=== PATIENT | male | born 2000 | race Two or more races ===

== ENCOUNTER 2025-08-04 12:16 | Inpatient (IN) | payer MEDICAID, SELFPAY ==
--- NOTE | 2025-08-04 12:19 | XR_ITS ---
Examination: CT brain head without contrast. 2-D sagittal coronal reconstructions Date and time of exam: August 04, 2025, 1433 hours, comparison May 13, 2024 INDICATIONS: Multiple seizures today followed by altered mental status COMPARISON: May 13, 2024 CTDI: vol (mGy): 58.5 DLP: (mGycm): 1194 Technique: Multiple CT axial sections of the brain have been obtained, 5 mm slice thickness. Contrast has not been administered. 2-D sagittal, coronal reconstructions have been obtained Low dose protocols were performed. One or more of the following dose reduction techniques were used; automated exposure control, adjustment of the mA and/or KV according to patient size, use of iterative reconstruction technique. Findings: No significant ventricular enlargement. Stable multiple cerebral calcifications and left cerebellar calcification Intra-axial or extra-axial hemorrhage density is not seen. No mass effect or midline shift Basal cisterns are not remarkable. Fourth ventricle is midline. Cranial vault intact. Impression: No interval acute hemorrhage, mass effect or midline shift Again noted multiple cerebral calcifications, differential would include cysticercosis, tuberous sclerosis Consider elective brain MRI follow-up pre and postcontrast
--- NOTE | 2025-08-04 12:19 | EKG_ITS ---
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
[2025-08-04 12:20] VITALS: BP 112/55; PULSE 104; PULSE 115; PULSE 117; RESP 12; RESP 15; TEMP 37.9; O2SAT 87; O2SAT 93
--- NOTE | 2025-08-04 12:23 | EDNOTE_ITS ---
ED General RME/HPI General Chief complaint: Seizure Stated complaint: SEIZURE Time Seen by Provider: 08/04/25 12:18 Arrival date/time: 08/04/25 12:16 CC: Seizures HPI patient presents to the ER via EMS who report family witnessing 6 seizures 3 along and 3 short. The patient is obtunded but maintaining his own airway. EMS report tachycardia but otherwise stable vital signs. 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 EMS reports the grandmother stating the patient has been sick , prior to the seizures. Patient is reported to be nonverbal. Extremities appear deconditioned as I assume the patient is nonambulatory. Discussed with the mother at bedside who does not have custody of the patient states the patient has been raised by the grandmother, and the grandfather approximately 1 week ago. The grandmother did not was reluctant to take away his lopez toys and the patient stayed up all night until 5 in AM playing video games, in spite of the grandmother knowing that this would elicit seizures. Related Data Home Medications ?Medication ?Instructions ?Recorded ?Confirmed levetiracetam 1,000 mg tablet 2,000 mg PO BID 05/14/24 05/14/24 zonisamide 100 mg capsule 400 mg PO HS 05/14/24 Allergies Allergy/AdvReac Type Severity Reaction Status Date / Time No Known Allergies Allergy Verified 08/04/25 12:41 Review of Systems Review of Systems ROS Unobtainable: unobtainable due to mental status Past Medical History Past Medical History NEUROLOGIC: Positive Neurological Disorders (tuberous sclerosis), Brain Tumor and Seizures CARDIAC: Negative Cardiac Disorders, Hypercholesterolemia, Congestive Heart Failure or Hypertension RESPIRATORY: Negative Chronic Obstructive Pulmonary Disease (COPD) or Asthma GENITOURINARY: Negative Renal Disease MUSCULOSKELETAL: Negative Musculoskeletal Disorders ENT: Positive Deafness ENDOCRINE: Negative Diabetes Mellitus Type 1 or Diabetes Mellitus Type 2 HEMATOLOGIC: Negative Blood Disorders or Sickle Cell Disease OTHER HISTORY: Negative MRSA Family History FAMILY HISTORY: Positive Family Cardiac Disorders (HTN- paternal gma and gpa) Social History SMOKING STATUS: Never smoker SUBSTANCE USE: does not use ED Exam Narrative Physical exam: [General: Obese Head normocephalic HEENT: Eyes pupils are PERRLA no disconjugate gaze, mouth dry membranes nose no rhinorrhea. Neck is supple Chest equal chest rise nontender to palpation Respiratory: Tachypneic clear to auscultation no wheezes crackles or rubs CV: Rate rhythm is regular, tachycardic, no murmurs rubs or clicks Abdomen is distended secondary to body habitus soft no masses positive bowel sounds all 4 quadrants Back: Skin: Intact no petechiae rash induration ulceration or crepitus Extremities: Flaccid with passive range of motion. Fingers appeared to be contracted, feet appeared to be distended as a chronic foot drop. Neuro: Moaning to sternal rub. Course Course Course Narrative: Patient's case clinical presentation laboratory results and imaging discussed with the resident Dr. Maurice for Dr. Samantha Null agrees to accept the patient for admission. Quality Measures none Orders Category Date Time Status Bedside COVID-19 Antigen Test NOW Care 08/04/25 12:19 Active Double Cut Off Saw Operator STAT Care 08/04/25 12:19 Active Continuous Pulse Oximetry STAT Care 08/04/25 12:19 Completed EKG (ED ONLY) *Do not use* NOW Care 08/04/25 12:19 Completed In and Out Catheter X1PRN Care 08/04/25 12:19 Completed Insert IV NOW Care 08/04/25 12:19 Active NPO STAT Care 08/04/25 12:19 Active Strict Intake and Output Routine Care 08/04/25 12:[address] head/brain wo con Stat Exams 08/04/25 12:19 Completed EKG (ED Only) Stat Exams 08/04/25 12:19 Draft XR chest 1V Stat Exams 08/04/25 15:16 Ordered ABG [Arterial Blood Gas] Stat Lab 08/04/25 14:01 Ordered B-Type Natriuretic Peptide Stat Lab 08/04/25 12:20 Completed Beta Hydroxybutyrate Stat Lab 08/04/25 14:46 Completed Blood Culture (Lab) Stat Lab 08/04/25 12:20 Received CBC Stat Lab 08/04/25 12:20 Completed CBC Stat Lab 08/04/25 15:38 Ordered CMP [Comprehensive Metabolic Panel] Stat Lab 08/04/25 15:38 Ordered Comprehensive Metabolic Panel Stat Lab 08/04/25 12:20 Completed Creatine Kinase Stat Lab 08/04/25 14:46 Completed Influenza A & B Rapid Panel Stat Lab 08/04/25 13:04 Completed LDH (Lactate Dehydrogenase) Stat Lab 08/04/25 12:20 Completed Lactate (Lactic Acid) Stat Lab 08/04/25 13:10 Results Lactic Acid [Lactate (Lactic Acid)] Stat Lab 08/04/25 15:38 Ordered Lipase Stat Lab 08/04/25 12:20 Completed Magnesium Stat Lab 08/04/25 12:20 Completed Partial Thromboplastin Time Stat Lab 08/04/25 12:20 Completed Path Review Blood Smear Stat Lab 08/04/25 12:20 Completed Phosphorous Stat Lab 08/04/25 12:20 Completed Procalcitonin Stat Lab 08/04/25 12:20 Completed Prothrombin Time with INR Stat Lab 08/04/25 12:20 Completed Troponin I Stat Lab 08/04/25 12:20 Completed Urinalysis, C/S if Indicated Stat Lab 08/04/25 12:30 Completed Urine Culture Stat Lab 08/04/25 12:30 Received VBG [Venous Blood Gas] Stat Lab 08/04/25 15:38 Ordered Acetaminophen Ivpb [Ofirmev Inj] Med 08/04/25 12:30 Discontinued 1,000 mg in 100 ml IV NOW Ringers Lactated 1000 ml [Lactated Ringers] 1,000 ml Med 08/04/25 12:20 Discontinued IV 999 mls/hr Ringers Lactated 1000 ml [Lactated Ringers] 1,000 ml Med 08/04/25 13:11 Discontinued IV 999 mls/hr Ringers Lactated 1000 ml [Lactated Ringers] 1,000 ml Med 08/04/25 13:51 Discontinued IV 999 mls/hr Ringers Lactated 500 ml [Lactated Ringers] 500 ml Med 08/04/25 13:51 Discontinued IV 999 mls/hr Sodium Chloride 0.9% 1000 ml [Ns] 1,000 ml Med 08/04/25 13:49 Active IV 250 mls/hr cefTRIAXone/D5w 1gm IV premix [Rocephin/D5w 1gm IV Med 08/04/25 13:55 D iscontinued premix] 1 gm in 50 ml IV X1 levETIRAcetam INJ [Keppra Inj] Med 08/04/25 12:19 Discontinued 1,500 mg IVP X1 ONE levETIRAcetam INJ [Keppra Inj] Med 08/04/25 12:23 Discontinued 2,000 mg IVP X1 ONE Oxygen Delivery NOW RT 08/04/25 12:19 Active Vital Signs Vital signs: Vital Signs Temperature 100.2 F 08/04/25 12:20 Pulse Rate 117 H 08/04/25 12:20 Respiratory Rate 15 08/04/25 12:20 Blood Pressure 112/55 L 08/04/25 12:20 Pulse Oximetry (%) 93 L 08/04/25 12:20 Oxygen Delivery Method Oxy Mask 08/04/25 12:20 Oxygen Flow Rate 15 08/04/25 12:20 Discharge Plan Plan Patient Disposition: Other Care w/in Hosp ([facility]) Patient condition on transfer: Stable Prescriptions/Referrals Prescriptions/Med Rec: No Action zonisamide 100 mg capsule 400 mg PO HS Patient Comments: TAKE 4 CAPSULES BY MOUTH EVERY DAY IN THE EVENING levetiracetam 1,000 mg tablet 2,000 mg PO BID Patient Comments: TAKE 2 TABLETS BY MOUTH IN THE MORNING AND TAKE 2 TABLETS AT BEDTIME Referrals: Leatha Blackmon HOUSEKEEPER/LAUNDRY ASSISTANT [Primary Care Provider] - In 1 week Problem List Clinical Impression: Leukocytosis, Fever, Sepsis, Seizure, Dehydration Patient/Caregiver Discharge Instructions Print Language: Italian Stand Alone Forms: [place] Info., Patient Portal Info Letter PA/JEWELRY DEPARTMENT SUPERVISOR Supervising Physician PA/JEWELRY DEPARTMENT SUPERVISOR Supervising Physician: Bruno Faustin ENP [facility] Clinical Information Provided by: EMS and family Medical Records reviewed [facility] Meds/Rx considered, not ordered None Labs/Rad/Tests considered, not ordered None Chronic Illness/Social Conditions Explain: Seizure disorder EKG Interpretation EKG #1: EKG Interpretation: EKG performed at 1230 shows a ventricular rate of 131 AK interval 136 QRS of 98 QTc of 401 is sinus tachycardia. When compared to old EKG of May 14, 2024 there is T wave inversions in aVR and V2, otherwise no other acute changes. Labs Labs: interpreted by ma Lab(s) Interpretation(s): CBC shows a leukocytosis of 37.2 no anemia no thrombocytopenia Coags show PTT of 38.8 INR 1.0 PT of 10.9. CMP shows a glucose of 236 creatinine of 1.7 sodium 145 potassium of 4.2 chloride of 104, CO2 is less than 10 gap of 31. Lactic acid of 19.0. T. bili of 0.2 AST 38 ALT of 71 alk phos of 167 LDH of 3 98 Troponin and BNP are unremarkable. Lipase is 37. Medication Administration(s) Medication Administration History Sodium Chloride (Ns) 1,000 mls @ 250 mls/hr IV .Q4H RANJEET Stop: 09/03/25 13:48 Discontinued Medications Lactated Ringer's (Lactated Ringers) 1,000 mls @ 999 mls/hr IV .Q1H1M ONE Stop: 08/04/25 13:20 Last Infusion: 08/04/25 13:38 Dose: Infused Documented By: Admin: 08/04/25 12:37 Dose: 999 mls/hr Documented By: VL Acetaminophen (Ofirmev Inj) 1,000 mg in 100 mls @ 250 mls/hr IV NOW ONE Stop: 08/04/25 12:53 Last Infusion: 08/04/25 13:00 Dose: Infused Documented By: Admin: 08/04/25 12:36 Dose: 250 mls/hr Documented By: VL Lactated Ringer's (Lactated Ringers) 1,000 mls @ 999 mls/hr IV .Q1H1M ONE Stop: 08/04/25 14:11 Last Admin: 08/04/25 13:29 Dose: 999 mls/hr Documented By: ED Lactated Ringer's (Lactated Ringers) 1,000 mls @ 999 mls/hr IV .Q1H1M ONE Stop: 08/04/25 14:51 Lactated Ringer's (Lactated Ringers) 500 mls @ 999 mls/hr IV .Q31M ONE Stop: 08/04/25 14:21 Ceftriaxone Sodium/Dextrose (Rocephin/D5w 1gm Iv Premix) 1 gm in 50 mls @ 100 mls/hr IV X1 ONE Stop: 08/04/25 14:24 Levetiracetam (Levetiracetam Inj 100 Mg/Ml Vial 5ml) 1,500 mg IVP X1 ONE Stop: 08/04/25 12:20 Last Admin: 08/04/25 12:48 Dose: Not Given Documented By: VL Non-Admin Reason: Cancelled by Provider Levetiracetam (Levetiracetam Inj 100 Mg/Ml Vial 5ml) 2,000 mg IVP X1 ONE Stop: 08/04/25 12:24 Last Admin: 08/04/25 12:37 Dose: 2,000 mg Documented By: VL
[2025-08-04 12:36] VITALS: BMI 33.9
[2025-08-04] MEDS: ACETAMINOPHEN IVPB 1,000 MG/100 ML VIAL 250 MG IV (12:36)
[2025-08-04] MEDS: RINGERS LACTATED 1000 ML 1,000 ML 999 ML IV ×3 (12:37→16:27)
[2025-08-04] MEDS: levETIRAcetam INJ 100 MG/ML VIAL 5ML 2000 MG IVP (12:37)
--- NOTE | 2025-08-04 12:42 | PC.NURSE ---
Mother at bedside now, grandmother at bedside earlier. Mother states Grandmother has custody of pt.
[2025-08-04 12:44] LABS: Collection Type, Urine Clean Catch
[2025-08-04 12:58] LABS: Bacteria,Urine 2+; Bilirubin,Urine Negative (Negative); Blood,Urine Negative (Negative); Clarity,Urine Clear (Clear/Hazy); Color,Urine Yellow (Lt Yel-Yel); Glucose, Urine Negative (Negative); Ketones,Urine Negative (Negative); Leukocyte Esterase,Urine Negative (Negative); Nitrite,Urine Negative (Negative); PH,Urine 6.0 (5.0-7.0); Protein,Urine 1+ (Neg - Trace); RBC,Urine 12 /hpf (0-3); Specific Gravity,Urine 1.027 (1.001-1.035); Squamous Epithelial Cell,Urine 1 /hpf (0-5); Urobilinogen,Urine Negative mg/dL (0.0-1.0); WBC,Urine 3 /hpf (0-5)
[2025-08-04 13:19] LABS: Culture Indicated,Urine Yes; Sperm,Urine Present
[2025-08-04 13:40] LABS: Basophils # (Auto) 0.3 Thou/mm3 (0.0-0.2); Basophils % (Auto) 1 % (0-2.5); Eosinophils # (Auto) 0.5 Thou/mm3 (0.0-0.5); Eosinophils % (Auto) 1 % (0-10); Hematocrit 48.9 % (41.0-53.0); Hemoglobin 15.1 g/dL (13.5-16.0); Immature Granulocytes Auto 1.83 Thou/mm3 (0.00-0.00); Lymphocytes # (Auto) 18.6 Thou/mm3 (1.0-4.8); Lymphocytes % (Auto) 50 % (10-50); Mean Corpuscular HGB Conc 30.9 g/dl (31.0-37.0); Mean Corpuscular Hemoglobin 32.1 pg (25.0-35.0); Mean Corpuscular Volume 104 fL (80-100); Monocytes # (Auto) 2.3 Thou/mm3 (0.0-0.8); Monocytes % (Auto) 6 % (0-12); Neutrophils # (Auto) 13.7 Thou/mm3 (1.8-7.7); Neutrophils % (Auto) 37 % (37-80); Nucleated Red Blood Cell # 0.02 Thou/mm3 (0.00-0.00); Nucleated Red Blood Cell % 0 /100 WBC (0); Platelet Count 367 Thou/mm3 (140-440); RDW Standard Deviation 45.6 fL (35.1-43.9); Red Blood Count 4.70 Miln/mm3 (4.50-5.90)
[2025-08-04 13:41] LABS: B-Type Natriuretic Peptide < 20 pg/mL (0-100)
[2025-08-04 13:46] LABS: Alanine Aminotransferase 71 U/L (10-49); Albumin, Serum 5.4 gm/dL (3.5-5.0); Albumin/Globulin Ratio 1.7 (1.2-2.2); Alkaline Phosphatase 167 U/L (46-116); Aspartate Amino Transferase 38 U/L (0-34); BUN/Creatinine Ratio 6 Ratio (12-20); Bilirubin,Total 0.2 mg/dL (0.3-1.2); Blood Urea Nitrogen 11 mg/dL (9-23); Calcium 10.3 mg/dL (8.3-10.6); Calcium (Corrected) 10.3 mg/dL (8.5-10.1); Chloride 104 mMol/L (98-107); Creatinine (Component) 1.7 mg/dL (0.6-1.3); Estimated Creatinine Clearance 87.9 mL/min (>60); Globulin 3.1 gm/dL (2.3-3.5); Glucose 236 mg/dL (74-106); LDH (Lactate Dehydrogenase) 398 U/L (120-246); Lipase 37 U/L (12-53); Magnesium 2.7 mg/dL (1.6-2.6); Osmolality,Calculated 296 (275-295); Phosphorous 7.9 mg/dL (2.4-5.1); Potassium 4.2 mMol/L (3.4-5.1); Sodium 145 mMol/L (136-145); Total Protein 8.5 gm/dL (5.7-8.2); Troponin I < 0.020 ng/mL (0.0-0.045); White Blood Count 37.2 Thou/mm3 (3.8-10.6); eGFR 57 See Note
[2025-08-04 13:48] LABS: Lactate (Lactic Acid) 19.0 mMol/L (0.4-2.0)
[2025-08-04 13:49] LABS: INR 1.0 (0.9-1.3); Partial Thromboplastin Time 38.8 Seconds (22.0-36.0); Prothrombin Time 10.9 Seconds (9.0-12.2)
[2025-08-04 13:56] LABS: Procalcitonin 0.07 ng/ml (0.0-0.49)
[2025-08-04 13:57] LABS: Anion Gap 31 (7-16)
[2025-08-04 13:58] LABS: Carbon Dioxide < 10.0 mMol/L (20.0-31.0)
[2025-08-04 14:02] LABS: Path Review Blood Smear Sent to Pathologist
[2025-08-04 14:20] LABS: Influenza A Ag Negative; Influenza B Ag Negative
[2025-08-04 15:06] LABS: Beta Hydroxybutyrate 0.1 mmol/L (<0.6)
--- NOTE | 2025-08-04 15:16 | XR_ITS ---
EXAMINATION: AP chest single view TECHNIQUE: Portable sitting AP chest single view Date and time: August 04, 2025, 1532 hours, comparison May 15, 2024 INDICATIONS: Cough and chest pain beginning today FINDINGS: Reduced inspiratory effort Normal heart size No pneumonia. Osseous structures intact IMPRESSION: Poor inspiratory effort chest x-ray
[2025-08-04 15:25] LABS: Creatine Kinase 156 U/L (34-171)
--- NOTE | 2025-08-04 16:08 | ESHP_ITS ---
<Statement entered by Mackenzie Shannon MD - 08/13/25 07:14> I reviewed above note and agree with findings and plans. I have also personally examined the patient with medicine team and went over assessment and plan with medical team including quality intern and resident physician. 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 Seizures were witnessed by grandmother who was at bedside.. Per grandmother last 24-hour the patient was playing a lot of video games and was sleep deprived. Grandmother is the primary engraver pantograph and has a full custody over the patient. He is following up outpatient with and was on Keppra, lacosamide, zonisamide. Patient was compliant with the home regimen. However recent sleep deprivation probably triggered seizures. On presentation patient was tachycardic, saturating 93% on 15 L of OxyMask. Labs revealed leukocytosis with WBC of 37.2, CMP was remarkable for acidosis bicarb of less than 10, lactic acid was 19, Cr1.7, glucose 236. Phosphorus 7.9, magnesium is 2.7, CPK was within normal limits. Patient in ED was given 3500 of Keppra, [address] head showed again multiple cerebral calcifications differentials tuberosclerosis. Neurology was contacted in ED and recommended admission for 24-hour monitoring, and continue home medication I discussed with and supervised the quality intern physician who took care of this patient. I personally saw and examined the patient and discussed the assessment and plan with the entire medicine team, including my attending , I agree with the assessment and plan as documented below Sweta Holden M.D. PGY-3 Disclaimer: Despite multiple revisions, due to the dictation software being used, the document bellow may not be free of grammatical errors including phonetic/typographic errors. However, this does not deter from our commitment to providing health care in the patient's best interest in mind. Documentation for date of: 08/04/25 HPI History of Present Illness History of present illness: 25-year-old male with a history of tuberous sclerosis and chronic intractable epilepsy since childhood presents to the ED after 6 episodes of generalized tonic-clonic seizures in the morning, witnessed by his grandmother. Over the past 24 hours, the patient had been playing video games extensively and was sleep deprived, likely triggering the seizures. The patient's grandmother, who is the primary caregiver and has full custody, reports the patient has been compliant with his outpatient regimen, which includes Keppra, lacosamide, and zonisamide, under the care of Dr. Fulton. The recent sleep deprivation is suspected to have exacerbated his seizure activity. ED COURSE: Initial vitals include temperature 100.2, BP 112/55, HR 117, RR 15, saturating 93% on 15 L oxy mask. Labs significant for WBC 37.2 with repeat 17.4, lactic acid 19 down to 2.9, glucose 236, calcium 10.3, phosphorus 7.9, magnesium 2.7, total bili 0.2, AST 38, ALT 71, alk phos 167, lactate dehydrogenase 398. Head CT showed no hemorrhage, mass effect, midline shift, chronic multiple cerebral calcifications. CXR showed, EKG showed sinus tachycardia. Patient given 3.5g Keppra, and 2L bolus NS. PMH: Tuberous sclerosis, seizure disorder PSH: None SH: Does not smoke, drink, or use illicit drugs Allergies: NKDA Medications: Keppra 2g PO BID, Znisamide 400mg PO HS Patient admitted for recurrent seizures. Review of Systems Review of Systems Narrative Review of Systems: All systems reviewed negative unless stated otherwise above. Exam Vital Signs Temp Pulse Resp BP Pulse Ox O2 Del Method O2 Flow Rate 100.2 F 115 H 15 112/55 L 93 L Oxy Mask 15 08/04/25 12:20 08/04/25 12:20 08/04/25 12:20 08/04/25 12:20 08/04/25 12:20 08/04/25 12:20 08/04/25 12:20 Narrative Exam General: Patient nonverbal and mute at baseline, uses sign language with grandmother HEENT: NC/AT, mucous membranes moist, bilateral sclera anicteric Cardiovascular: regular rate and rhythm, S1/S2 present, no murmurs appreciated Pulmonary: clear to auscultation bilaterally, no rales/rhonchi/wheezes Abdominal: soft, non-tender, non-distended, no rebound/guarding, normal bowel sounds present Musculoskeletal: normal ROM, no peripheral edema Skin: warm and dry, intact, no rashes, Neuro: Unable to perform as not able to follow commands Results: Labs 08/04/25 16:52 08/04/25 16:52 Labs: Short CBC 08/04/25 Range/Units 12:20 WBC 37.2 H* (3.8-10.6) Thou/mm3 Hgb 15.1 (13.5-16.0) g/dL Hct 48.9 (41.0-53.0) % Plt Count 367 (140-440) Thou/mm3 BMP 08/04/25 12:20 Sodium 145 Potassium 4.2 Chloride 104 Carbon Dioxide < 10.0 L* BUN 11 Creatinine 1.7 H Glucose 236 H Calcium 10.3 Cardiac Enzymes 08/04/25 08/04/25 Range/Units 12:20 14:46 Total Creatine Kinase 156 (34-171) U/L Troponin I < 0.020 (0.0-0.045) ng/mL Liver Function 08/04/25 Range/Units 12:20 Total Bilirubin 0.2 L (0.3-1.2) mg/dL AST 38 H (0-34) U/L ALT 71 H (10-49) U/L Alkaline Phosphatase 167 H (46-116) U/L Albumin 5.4 H (3.5-5.0) gm/dL Urine 08/04/25 Range/Units 12:30 Urine Color Yellow (Lt Yel-Yel) Urine Clarity Clear (Clear/Hazy) Urine pH 6.0 (5.0-7.0) Ur Specific [place] 1.027 (1.001-1.035) Urine Protein 1+ A (Neg - Trace) Urine Glucose (UA) Negative (Negative) Quality Measures Quality Measures none Medications Home Medications and Allergies Home Medications ?Medication ?Instructions ?Recorded ?Confirmed ?Type levetiracetam 1,000 mg tablet 2,000 mg PO BID 05/14/24 05/14/24 History zonisamide 100 mg capsule 400 mg PO HS 05/14/24 History Allergies Allergy/AdvReac Type Severity Reaction Status Date / Time No Known Allergies Allergy Verified 08/04/25 12:41 Visit Medications Acetaminophen (Acetaminophen 325 Mg Tablet) 650 mg PO Q6H PRN PRN Reason: PAIN OR FEVER > 101 Stop: 09/03/25 15:50 Bisacodyl (Bisacodyl 5 Mg Tabec) 10 mg PO QDAY [facility]; Protocol Stop: 09/04/25 08:59 Lactated Ringer's (Lactated Ringers) 1,000 mls @ 100 mls/hr IV .Q10H RANJEET Stop: 08/05/25 12:14 Lacosamide (Lacosamide 50 Mg Tablet) 150 mg PO BID RANJEET Stop: 09/03/25 20:59 Levetiracetam (Levetiracetam 250 Mg Tablet) 2,000 mg PO BID RANJEET Stop: 09/04/25 08:59 Midazolam HCl (Midazolam Inj 1 Mg/Ml Vial 2 Ml) 2 mg IV X1 PRN PRN Reason: seizure Polyethylene Glycol (Polyethylene Glycol 17 Gm Packet) 17 gm PO QDAY [facility] Stop: 09/04/25 08:59 Zonisamide (Zonisamide 100 Mg Capsule) 400 mg PO HS [facility] Stop: 09/03/25 20:59 Discontinued Medications Lactated Ringer's (Lactated Ringers) 1,000 mls @ 999 mls/hr IV .Q1H1M ONE Stop: 08/04/25 13:20 Last Infusion: 08/04/25 13:38 Dose: Infused Acetaminophen (Ofirmev Inj) 1,000 mg in 100 mls @ 250 mls/hr IV NOW ONE Stop: 08/04/25 12:53 Last Infusion: 08/04/25 13:00 Dose: Infused Lactated Ringer's (Lactated Ringers) 1,000 mls @ 999 mls/hr IV .Q1H1M ONE Stop: 08/04/25 14:11 Last Infusion: 08/04/25 14:30 Dose: Infused Sodium Chloride (Ns) 1,000 mls @ 250 mls/hr IV .Q4H RANJEET Stop: 09/03/25 13:48 Lactated Ringer's (Lactated Ringers) 1,000 mls @ 999 mls/hr IV .Q1H1M ONE Stop: 08/04/25 14:51 Lactated Ringer's (Lactated Ringers) 500 mls @ 999 mls/hr IV .Q31M ONE Stop: 08/04/25 14:21 Ceftriaxone Sodium/Dextrose (Rocephin/D5w 1gm Iv Premix) 1 gm in 50 mls @ 100 mls/hr IV X1 ONE Stop: 08/04/25 14:24 Levetiracetam (Levetiracetam Inj 100 Mg/Ml Vial 5ml) 1,500 mg IVP X1 ONE Stop: 08/04/25 12:20 Last Admin: 08/04/25 12:48 Dose: Not Given Levetiracetam (Levetiracetam Inj 100 Mg/Ml Vial 5ml) 2,000 mg IVP X1 ONE Stop: 08/04/25 12:24 Last Admin: 08/04/25 12:37 Dose: 2,000 mg Assessment & Plan Plan 25 y/o M with PMHx significant for tuberous sclerosis w/ recurrent seizures, deaf and mute at baseline, brought to ED from home by family due to increased seizure activity 6 in total this AM. Patient admitted for recurrent seizures. #Recurrent seizures, increased activity #Tuberous sclerosis Patient has had increased seizure activity since AM today, 6 in total. Elevated WBC 37.2, repeat 17.4 Elevated lactic acid at 19, repeat 2.[address] shows multiple cerebral calcifications, chronic Creatinine kinase normal CXR report pending Blood Cx pending Urine Cx pending Patient received 3.5 g of Keppra in ED Plan - Resume Keppra 2 g twice daily starting tomorrow a.m. - Resume lacosamide 150 mg twice daily starting this evening - Resume zonisamide 400 mg nightly this evening - Seizure precautions - N.p.o. for tonight, regular meals from tomorrow a.m. - Neurology consulted, Dr. Fulton aware - Follow-up on culture result to check for any signs of infection #APOLINAR, resolving Likely prerenal in this case from dehydration Initial creatinine 1.7, repeat 1.3 Plan - Continue lactated Ringer's 100 cc an hour for 2 bags Health Maintenance: DVT prophylaxis: Heparin 5000u q8h GI prophylaxis: None Diet: NPO pending swallow screen, regular diet in AM Code status: Full Code Case discussed with my attending Dr. Shannon, and senior resident, Dr. Navin Barrios MD PGY-1
[2025-08-04 16:17] LABS: Reflex Lactate? Y
[2025-08-04 16:18] VITALS: BP 147/90; PULSE 106; RESP 20; TEMP 37.5; O2SAT 97
[2025-08-04] MEDS: RINGERS LACTATED 500 ML 500 ML 999 ML IV (16:27)
[2025-08-04 16:59] LABS: Base Excess, Venous -6 (-3-3); Lactate (Lactic Acid) 2.9 mMol/L (0.4-2.0); O2 Saturation, Venous 86 % (96-97); PCO2, Venous 33 mmHg (36-56); PO2, Venous 50 mmHg (15-58); pH, Venous 7.36 (7.33-7.66)
[2025-08-04 17:01] LABS: Basophils # (Auto) 0.1 Thou/mm3 (0.0-0.2); Basophils % (Auto) 0 % (0-2.5); Eosinophils # (Auto) 0.0 Thou/mm3 (0.0-0.5); Eosinophils % (Auto) 0 % (0-10); Hematocrit 42.6 % (41.0-53.0); Hemoglobin 15.0 g/dL (13.5-16.0); Immature Granulocytes Auto 0.34 Thou/mm3 (0.00-0.00); Lymphocytes # (Auto) 1.1 Thou/mm3 (1.0-4.8); Lymphocytes % (Auto) 6 % (10-50); Mean Corpuscular HGB Conc 35.2 g/dl (31.0-37.0); Mean Corpuscular Hemoglobin 32.2 pg (25.0-35.0); Mean Corpuscular Volume 91 fL (80-100); Monocytes # (Auto) 1.0 Thou/mm3 (0.0-0.8); Monocytes % (Auto) 6 % (0-12); Neutrophils # (Auto) 14.9 Thou/mm3 (1.8-7.7); Neutrophils % (Auto) 86 % (37-80); Nucleated Red Blood Cell # 0.00 Thou/mm3 (0.00-0.00); Nucleated Red Blood Cell % 0 /100 WBC (0); Platelet Count 214 Thou/mm3 (140-440); RDW Standard Deviation 39.8 fL (35.1-43.9); Red Blood Count 4.66 Miln/mm3 (4.50-5.90); White Blood Count 17.4 Thou/mm3 (3.8-10.6)
[2025-08-04 17:16] VITALS: BP 143/84; PULSE 111; RESP 19; TEMP 36.6; O2SAT 97
[2025-08-04 17:28] LABS: Alanine Aminotransferase 59 U/L (10-49); Albumin, Serum 4.5 gm/dL (3.5-5.0); Albumin/Globulin Ratio 1.8 (1.2-2.2); Alkaline Phosphatase 115 U/L (46-116); Anion Gap 13 (7-16); Aspartate Amino Transferase 33 U/L (0-34); BUN/Creatinine Ratio 9 Ratio (12-20); Bilirubin,Total 0.3 mg/dL (0.3-1.2); Blood Urea Nitrogen 12 mg/dL (9-23); Calcium 9.0 mg/dL (8.3-10.6); Calcium (Corrected) 9.0 mg/dL (8.5-10.1); Carbon Dioxide 20.9 mMol/L (20.0-31.0); Chloride 108 mMol/L (98-107); Creatinine (Component) 1.3 mg/dL (0.6-1.3); Estimated Creatinine Clearance 114.9 mL/min (>60); Globulin 2.5 gm/dL (2.3-3.5); Glucose 92 mg/dL (74-106); Osmolality,Calculated 282 (275-295); Potassium 3.8 mMol/L (3.4-5.1); Sodium 142 mMol/L (136-145); Total Protein 7.0 gm/dL (5.7-8.2); eGFR > 60 See Note
[2025-08-04] MEDS: cefTRIAXone/D5w 1gm IV premix 1 GM/50 ML BAG IV (18:14)
--- NOTE | 2025-08-04 18:16 | PD.RESCONSUL ---
HPI Data of Consult Requesting Physician: Mackenzie Shannon MD Admitting Provider: Mackenzie Shannon MD Attending Provider: Mackenzie Shannon MD Primary Care Provider: Leatha Blackmon NP Consult Narrative Reason for consult: breakthrough seizure History of present illness: Sebastián Johnson is 25 yr male with PMH of tuberous sclerosis, non verbal at baseline presenting to ED due to breakthrough tonic clonic seizure. Patient's grandmother was at bedside who has been taking care of patient since the age of 5. Stated that since the past few days patient has been having worsening cough and feeling warm. Monday he was at his baseline and noticed decline in his health status the following day. She denied any vomiting and endorsed that he has been having decreased appetite along with the cough and the fever. Stated that she noticed 3 small seizures at home that lasted less than 2 minutes and 3 big seizures for 3-4 minutes. He has remained seizure free for an extended period of time. In the past, she has noticed tounge lacertaions and incontinence which did not occur in these episdoes. Patient is compliant in taking his medications. At bedside blood pressure 154/93, saturating 90% on room air. Patient is somnolent but arousable. Has difficulty following commands. Expresses to sign language that he is hungry. Labs revealed leukocytosis with WBC of 37.2, CMP was remarkable for acidosis bicarb of less than 10, lactic acid was 19, Cr1.7, glucose 236. He was loadded with [address] head showed multiple cerebral calcifications due to tuberosclerosis. Per chart review he takes lacosamide 150 mg daily, zonisamide 100 mg four capsules in the evening, and Keppra 2000mg BID. No need to repeat EEG. Resume home medications with seizure precautions. cc:: cc: Mackenzie Shannon MD Review of Systems Review of Systems ROS Unobtainable: unobtainable due to mental status Exam Vital Signs Temp Pulse Resp BP Pulse Ox O2 Del Method O2 Flow Rate 97.8 F 111 H 19 143/84 H 97 Nasal Cannula 2 08/04/25 17:16 08/04/25 17:16 08/04/25 17:16 08/04/25 17:16 08/04/25 17:16 08/04/25 17:16 08/04/25 17:16 Narrative Exam General: young male, non verbal, communicates slightly with hand gestures, No acute distress, cooperative HEENT: NCAT, No JVD noted. Mucosa moist. Pupils are equal and reactive to light bilaterally Cardiovascular: Normal S1 and S2. Regular rate and rhythm. Respiratory: Lungs are clear to auscultation bilaterally. No wheezing or crackles heard. Abdomen: Soft, nontender, not distended, normal bowel sounds. Skin: Warm to touch, dry, no rashes noted, angiofibromas around nose Musculoskeletal: No gross injuries. Able to move all 4 extremities. No pitting edema Neuro: non verbal at baseline, difficulty in following some commands. Withdraws to pain. CN grossly intact. Results Labs 08/05/25 05:30 08/05/25 05:30 Labs: Short CBC 08/04/25 08/04/25 Range/Units 12:20 16:52 WBC 37.2 H* 17.4 H D (3.8-10.6) Thou/mm3 Hgb 15.1 15.0 (13.5-16.0) g/dL Hct 48.9 42.6 (41.0-53.0) % Plt Count 367 214 D (140-440) Thou/mm3 BMP 08/04/25 08/04/25 12:20 16:52 Sodium 145 142 Potassium 4.2 3.8 Chloride 104 108 H Carbon Dioxide < 10.0 L* 20.9 BUN 11 12 Creatinine 1.7 H 1.3 Glucose 236 H 92 D Calcium 10.3 9.0 Cardiac Enzymes 08/04/25 08/04/25 Range/Units 12:20 14:46 Total Creatine Kinase 156 (34-171) U/L Troponin I < 0.020 (0.0-0.045) ng/mL Liver Function 08/04/25 08/04/25 Range/Units 12:20 16:52 Total Bilirubin 0.2 L 0.3 (0.3-1.2) mg/dL AST 38 H 33 (0-34) U/L ALT 71 H 59 H (10-49) U/L Alkaline Phosphatase 167 H 115 D (46-116) U/L Albumin 5.4 H 4.5 D (3.5-5.0) gm/dL Urine 08/04/25 Range/Units 12:30 Urine Color Yellow (Lt Yel-Yel) Urine Clarity Clear (Clear/Hazy) Urine pH 6.0 (5.0-7.0) Ur Specific [place] 1.027 (1.001-1.035) Urine Protein 1+ A (Neg - Trace) Urine Glucose (UA) Negative (Negative) ABG Interpretation ABG results: 08/04/25 16:52 VBG pH 7.36 VBG pCO2 33 L VBG pO2 50 VBG Base Excess -6 L Quality Measures Quality Measures none Medications Home Medications and Allergies Home Medications ?Medication ?Instructions ?Recorded ?Confirmed ?Type levetiracetam 1,000 mg tablet 2,000 mg PO BID 05/14/24 08/04/25 History zonisamide 100 mg capsule 400 mg PO HS 05/14/24 08/04/25 History lacosamide 150 mg tablet 150 mg PO BID 08/04/25 08/04/25 History Allergies Allergy/AdvReac Type Severity Reaction Status Date / Time No Known Allergies Allergy Verified 08/04/25 12:41 Visit Medications Acetaminophen (Acetaminophen 325 Mg Tablet) 650 mg PO Q6H PRN PRN Reason: PAIN OR FEVER > 101 Stop: 09/03/25 15:50 Bisacodyl (Bisacodyl 5 Mg Tabec) 10 mg PO QDAY [facility]; Protocol Stop: 09/04/25 08:59 Heparin Sodium (Porcine) (Heparin Sod Inj 5000 Unit/Ml Vial) 5,000 unit SC Q8H [facility] Stop: 08/18/25 16:44 Lactated Ringer's (Lactated Ringers) 1,000 mls @ 100 mls/hr IV .Q10H [facility] Stop: 08/05/25 12:14 Lacosamide (Lacosamide 50 Mg Tablet) 150 mg PO BID [facility] Stop: 09/03/25 20:59 Levetiracetam (Levetiracetam 250 Mg Tablet) 2,000 mg PO BID [facility] Stop: 09/04/25 08:59 Midazolam HCl (Midazolam Inj 1 Mg/Ml Vial 2 Ml) 2 mg IV X1 PRN PRN Reason: seizure Polyethylene Glycol (Polyethylene Glycol 17 Gm Packet) 17 gm PO QDAY [facility] Stop: 09/04/25 08:59 Zonisamide (Zonisamide 100 Mg Capsule) 400 mg PO HS [facility] Stop: 09/03/25 20:59 Discontinued Medications Lactated Ringer's (Lactated Ringers) 1,000 mls @ 999 mls/hr IV .Q1H1M ONE Stop: 08/04/25 13:20 Last Infusion: 08/04/25 13:38 Dose: Infused Acetaminophen (Ofirmev Inj) 1,000 mg in 100 mls @ 250 mls/hr IV NOW ONE Stop: 08/04/25 12:53 Last Infusion: 08/04/25 13:00 Dose: Infused Lactated Ringer's (Lactated Ringers) 1,000 mls @ 999 mls/hr IV .Q1H1M ONE Stop: 08/04/25 14:11 Last Infusion: 08/04/25 14:30 Dose: Infused Sodium Chloride (Ns) 1,000 mls @ 250 mls/hr IV .Q4H [facility] Stop: 09/03/25 13:48 Lactated Ringer's (Lactated Ringers) 1,000 mls @ 999 mls/hr IV .Q1H1M ONE Stop: 08/04/25 14:51 Last Admin: 08/04/25 16:27 Dose: 999 mls/hr Lactated Ringer's (Lactated Ringers) 500 mls @ 999 mls/hr IV .Q31M ONE Stop: 08/04/25 14:21 Last Admin: 08/04/25 16:27 Dose: 999 mls/hr Ceftriaxone Sodium/Dextrose (Rocephin/D5w 1gm Iv Premix) 1 gm in 50 mls @ 100 mls/hr IV X1 ONE Stop: 08/04/25 14:24 Last Admin: 08/04/25 18:14 Dose: 100 mls/hr Levetiracetam (Levetiracetam Inj 100 Mg/Ml Vial 5ml) 1,500 mg IVP X1 ONE Stop: 08/04/25 12:20 Last Admin: 08/04/25 12:48 Dose: Not Given Levetiracetam (Levetiracetam Inj 100 Mg/Ml Vial 5ml) 2,000 mg IVP X1 ONE Stop: 08/04/25 12:24 Last Admin: 08/04/25 12:37 Dose: 2,000 mg Assessment & Plan Plan Sebastián Johnson is 25 yr male with PMH of tuberous sclerosis, non verbal at baseline presenting to ED due to breakthrough tonic clonic seizure. Had total of six seizures at home before coming to ED. was given loading dose 3.5 g Keppra. Neurology consulted for breakthrough seizures. #Tonic-clonic seizure #Tuberous sclerosis Patient's viral illness may have contributed to lowering threshold. Grandmother who is main central supply clerk for patient was at bedside. She witnessed seizure at home. Had a total of 6 seizures with 3 lasting for less than 2 minutes and 3 additional episodes lasting for 3 to 4 minutes. No tongue lacerations or incontinence during these episodes. He is compliant with his medications. Takes lacosamide 150 mg daily, zonisamide 100 mg four capsules in the evening, and Keppra 2000mg BID. CT head showed multiple cerebral calcifications due to tuberosclerosis. -resume home medications lacosamide 150 mg daily, zonisamide 100 mg four capsules in the evening, and Keppra 2000mg BID. - Versed 2mg IVP PRN for breakthrough seizures - seizure and aspiration precautions - swallow eval -EEG not required #APOLINAR #Metabolic acidosis #Lactic acidosis Primary care team to manage above conditions and ongoing care needs. The patient's management plan was discussed with my attending physician Dr. Fulton. Monique Segovia, PGY-2 Attending Provider Attestation/Addendum I personally have seen and examined the patient at the bedside and I agreed with the resident's findings, assessment and plan of care. Continue with his current antiepileptics, follow seizure precautions and benzos as needed for seizures.. No need for any workup. No need for medication changes. The trigger could have been related to upper respite tract infection. If he remains seizure-free for 24 hours, patient can be just from neurology standpoint.
--- NOTE | 2025-08-04 18:24 | PC.NURSE ---
Dr. Fulton bedside talking to pt.'s grandmother and assessing pt.
--- NOTE | 2025-08-04 19:13 | PC.NURSE ---
Report received from Nina QUINTANILLA in ED around 1830. Patient arrived at 1849, settled patient in room, bed locked in lowest position with call light and personal belongings within reach. Report given to Lisa QUINTANILLA.
[2025-08-04 19:15] VITALS: BP 147/97; PULSE 102; RESP 16; TEMP 36.8; O2SAT 99
--- NOTE | 2025-08-04 19:17 | PC.NURSE ---
Report received from Nina QUINTANILLA around 183. Patient arrived at 1849, settled in room with bed locked in lowest position, call light and personal belongings within reach. Report given to Lisa QUINTANILLA
[2025-08-04 19:55] LABS: Reflex Lactate? Y
[2025-08-04 20:00] VITALS: PULSE 88
[2025-08-04 20:43] LABS: Lactic Acid, 3 HR 3.2 mMol/L (0.4-2.0)
[2025-08-04] MEDS: RINGERS LACTATED 1000 ML 1,000 ML 100 ML IV (20:46)
[2025-08-04] MEDS: ZONISAMIDE 100 MG CAPSULE 400 MG PO (20:46)
[2025-08-04] MEDS: LACOSAMIDE 50 MG TABLET 150 MG PO (20:46)
[2025-08-04 23:20] LABS: Lactate (Lactic Acid) 1.5 mMol/L (0.4-2.0)
[2025-08-05] VITALS (7 sets, daily range): BP systolic 130–142; BP diastolic 80–94; PULSE 72–103; RESP 16–21; TEMP 36.6–37.5; O2SAT 94–98; BMI 34.7
[2025-08-05] MEDS: RINGERS LACTATED 1000 ML 1,000 ML 150 ML IV ×2 (00:10→07:52)
[2025-08-05] MEDS: HEPARIN SOD INJ 5000 UNIT/ML VIAL SC ×2 (00:13→08:37)
[2025-08-05 05:36] LABS: Lactate (Lactic Acid) 0.9 mMol/L (0.4-2.0)
[2025-08-05 05:54] LABS: Basophils # (Auto) 0.0 Thou/mm3 (0.0-0.2); Basophils % (Auto) 0 % (0-2.5); Eosinophils # (Auto) 0.0 Thou/mm3 (0.0-0.5); Eosinophils % (Auto) 0 % (0-10); Hematocrit 39.3 % (41.0-53.0); Hemoglobin 13.9 g/dL (13.5-16.0); Immature Granulocytes Auto 0.03 Thou/mm3 (0.00-0.00); Lymphocytes # (Auto) 2.1 Thou/mm3 (1.0-4.8); Lymphocytes % (Auto) 21 % (10-50); Mean Corpuscular HGB Conc 35.4 g/dl (31.0-37.0); Mean Corpuscular Hemoglobin 32.8 pg (25.0-35.0); Mean Corpuscular Volume 93 fL (80-100); Monocytes # (Auto) 1.0 Thou/mm3 (0.0-0.8); Monocytes % (Auto) 11 % (0-12); Neutrophils # (Auto) 6.4 Thou/mm3 (1.8-7.7); Neutrophils % (Auto) 67 % (37-80); Nucleated Red Blood Cell # 0.00 Thou/mm3 (0.00-0.00); Nucleated Red Blood Cell % 0 /100 WBC (0); Platelet Count 173 Thou/mm3 (140-440); RDW Standard Deviation 40.3 fL (35.1-43.9); Red Blood Count 4.24 Miln/mm3 (4.50-5.90); White Blood Count 9.6 Thou/mm3 (3.8-10.6)
[2025-08-05 05:58] LABS: Glucose Estimated Average 100 mg/dL (80-131); Hemoglobin A1C 5.1 % Hgb (4.8-6.0)
[2025-08-05 06:06] LABS: Alanine Aminotransferase 46 U/L (10-49); Albumin, Serum 4.3 gm/dL (3.5-5.0); Albumin/Globulin Ratio 2.0 (1.2-2.2); Alkaline Phosphatase 101 U/L (46-116); Anion Gap 13 (7-16); Aspartate Amino Transferase 25 U/L (0-34); BUN/Creatinine Ratio 8 Ratio (12-20); Bilirubin,Total 0.4 mg/dL (0.3-1.2); Blood Urea Nitrogen 11 mg/dL (9-23); Calcium 9.0 mg/dL (8.3-10.6); Calcium (Corrected) 9.0 mg/dL (8.5-10.1); Carbon Dioxide 22.9 mMol/L (20.0-31.0); Chloride 112 mMol/L (98-107); Creatinine (Component) 1.3 mg/dL (0.6-1.3); Estimated Creatinine Clearance 116.2 mL/min (>60); Globulin 2.2 gm/dL (2.3-3.5); Glucose 105 mg/dL (74-106); Magnesium 2.4 mg/dL (1.6-2.6); Osmolality,Calculated 293 (275-295); Phosphorous 5.4 mg/dL (2.4-5.1); Potassium 3.8 mMol/L (3.4-5.1); Sodium 148 mMol/L (136-145); Thyroid Stimulating Hormone 0.29 uIU/mL (0.55-4.78); Total Protein 6.5 gm/dL (5.7-8.2); eGFR > 60 See Note
[2025-08-05] MEDS: POLYETHYLENE GLYCOL 17 GM PACKET PO (08:37)
[2025-08-05] MEDS: LACOSAMIDE 50 MG TABLET 150 MG PO (08:37)
[2025-08-05 09:01] LABS: Free T4 (Free Thyroxine) 1.46 ng/dL (0.89-1.76)
[2025-08-05 10:52] LABS: Lactate (Lactic Acid) 1.3 mMol/L (0.4-2.0)
--- NOTE | 2025-08-05 12:34 | PC.SS ---
SS met with patient regarding his d/c plan. Pt is alert but non verbal. Pt was admitted for. Grandmother confirmed demographic and contact information is correct on facesheet. Pt resides with his grandmother. Pt ambulates independently without assistance or DME. Pt is ok with all ADLs. Patient utilizes [facility] on [facility]. Grandmother, Jessie Loya is patient's medical decision maker. Per grandmother, pt will return home upon d/c. Grandmother will provide transportation home. D/C plan: Return home Next of Kin: Jessie Loya, grandmother, phone# [phone] [facility]CP: [facility] Address: Correct on facesheet
--- NOTE | 2025-08-06 07:33 | ESDS_ITS ---
Planned Discharge Date 08/05/25 DS: Providers Provider Date of admission: 08/04/25 15:51 Primary care physician: Leatha Blackmon NP Admitting Provider: Mackenzie Shannon MD Attending Provider on Admission: Rommel Aguilera MD Consults: 08/04/25 16:07 Consult to Neurology / Tele-Neurology Routine Comment: seizures Consulting Provider: Jorge Fulton Attending Provider on DC: Rommel Aguilera MD Discharging Provider: Rommel Aguilera MD DS: Diagnosis Problem List Completed Was Problem List Reviewed/Reconciled?: Yes Hospital Course Hospital Course Hospital course: 25-year-old male with a history of tuberous sclerosis and chronic intractable epilepsy since childhood presents to the ED after 6 episodes of generalized tonic-clonic seizures in the morning, witnessed by his grandmother. Over the past 24 hours, the patient had been playing video games extensively and was sleep deprived, likely triggering the seizures. The patient's grandmother, who is the primary caregiver and has full custody, reports the patient has been compliant with his outpatient regimen, which includes Keppra, lacosamide, and zonisamide, under the care of Dr. Fulton. The recent sleep deprivation is suspected to have exacerbated his seizure activity. ED course: Initial vitals include temperature 100.2, BP 112/55, HR 117, RR 15, saturating 93% on 15 L oxy mask. Labs significant for WBC 37.2 with repeat 17.4, lactic acid 19 down to 2.9, glucose 236, calcium 10.3, phosphorus 7.9, magnesium 2.7, total bili 0.2, AST 38, ALT 71, alk phos 167, lactate dehydrogenase 398. Head CT showed no hemorrhage, mass effect, midline shift, chronic multiple cerebral calcifications. CXR showed, EKG showed sinus tachycardia. Patient given 3.5g Keppra, and 2L bolus NS Hospital course: Neurology recommended to resume home Keppra 2 g twice daily, lacosamide 150 mg twice daily, zonisamide 400 mg nightly. Patient remained seizure free overnight and was cleared by neurology to discharged home. Discharge instructions: Continue taking home medication as prescribed Follow-up outpatient with neurology in 1 week after discharge Follow-up outpatient with PCP 1 to 2 weeks after discharge Avoid any stress/triggers Return to ED anytime symptoms worsens. Admission diagnoses: #Recurrent seizures, tonic clonic #Tuberous sclerosis Case discussed with my attending Dr. Aguilera, and senior resident, Dr. Navin Barrios MD PGY-1 Status at Discharge Overall status at discharge: patient is progressing back to baseline Time Spent with Patient Time attestation: Total time spent providing and/or coordinating discharge services: Time spent: Greater than 30 minutes Exam Vital Signs Temp Pulse Resp BP Pulse Ox O2 Del Method O2 Flow Rate 99.1 F 94 21 H 142/94 H 94 L Room Air 2 08/05/25 12:20 08/05/25 12:20 08/05/25 12:20 08/05/25 12:20 08/05/25 12:20 08/05/25 12:20 08/05/25 04:00 Narrative Exam General: young male, non verbal, communicates slightly with hand gestures, no acute distress, cooperative HEENT: NCAT, No JVD noted. Mucosa moist. Pupils are equal and reactive to light bilaterally Cardiovascular: Normal S1 and S2. Regular rate and rhythm. Respiratory: Lungs are clear to auscultation bilaterally. No wheezing or crackles heard. Abdomen: Soft, nontender, not distended, normal bowel sounds. Skin: Warm to touch, dry, no rashes noted, angiofibromas around nose Musculoskeletal: No gross injuries. Able to move all 4 extremities. No pitting edema Neuro: non verbal at baseline, following commands, CN grossly intact. Discharge Plan Plan Patient Disposition: HOME (Self Care) Patient condition on transfer: Stable Care Plan Goals: Continue taking home medication as prescribed Follow-up outpatient with neurology in 1 week after discharge Follow-up outpatient with PCP 1 to 2 weeks after discharge Avoid any stress/triggers Return to ED anytime symptoms worsens. Prescriptions/Referrals Prescriptions/Med Rec: Continued zonisamide 100 mg capsule 400 mg PO HS Patient Comments: TAKE 4 CAPSULES BY MOUTH EVERY DAY IN THE EVENING levetiracetam 1,000 mg tablet 2,000 mg PO BID Patient Comments: TAKE 2 TABLETS BY MOUTH IN THE MORNING AND TAKE 2 TABLETS AT BEDTIME lacosamide 150 mg tablet 150 mg PO BID Referrals: Leatha Blackmon NP [Primary Care Provider] Patient/Caregiver Discharge Instructions Discharge Activity: activity as tolerated Education Materials: Epilepsy: Safety During a Seizure, ED Seizure, Recurrent (Adult) Print Language: Kinyarwanda Stand Alone Forms: Nlida Award Info., Patient Portal Info Letter Discharge Order Discharge Orders: Discharge (Routine); Ordered 08/05/25 Ordered By: Sweta Holden Quality Discharge Quality Measures VTE prophylaxis MD Attestestation MD Attestation I have examined the patient, reviewed labs and imaging findings, discussed the case with the resident(s), and reviewed entered orders. I agree with the plan of care as outlined in this note. Time Spent: [address] Willy MD
--- NOTE | 2025-08-06 21:36 | PD.VPROG1 ---
Telemedicine visit statement This visit was conducted with the use of interactive audio and video telecommunications system that permits real time communication between the patient and the provider. Patient's verbal consent for virtual visit was obtained on 08/05/25. Documentation for date of: 08/05/25 Subjective Subjective Interval history: Patient is in telemetry. No seizures reported after admission. Virtual exam Vital Signs Temp Pulse Resp BP Pulse Ox O2 Del Method O2 Flow Rate 99.1 F 94 21 H 142/94 H 94 L Room Air 2 08/05/25 12:20 08/05/25 12:20 08/05/25 12:20 08/05/25 12:20 08/05/25 12:20 08/05/25 12:20 08/05/25 04:00 Objective Labs 08/05/25 05:30 08/05/25 05:30 ABG Interpretation ABG results: 08/04/25 16:52 VBG pH 7.36 VBG pCO2 33 L VBG pO2 50 VBG Base Excess -6 L Assessment & Plan Problem List (1) Recurrent seizures: Status: Acute Assessment and plan: As he remains seizure-free since admission, we will continue with the current antiepileptic drugs. The patient is stable from neurology standpoint for discharge and I will see him back in the clinic in 2 weeks. (2) Tuberous sclerosis: Status: Chronic Assessment and plan: Stable
== END 2025-08-05 12:20 | disposition home or self-care (01) | DRG 53 ==
LOC: SERX 15:40 → SERHOLD 16:05 → S2NX 18:50
PROVIDERS: Registered Nurse General Practice; Admitting Provider Internal Medicine; Emergency Provider Family Medicine; PCP Nurse Practitioner Family; Visit Provider Student in an Organized Health Care Education/Training Program
DX: G40.409 Other generalized epilepsy and epileptic syndromes, not intractable, without status epilepticus (principal); Q85.1 Tuberous sclerosis; Z72.820 Sleep deprivation; R47.01 Aphasia; E86.0 Dehydration; E87.20 Acidosis, unspecified; H91.3 Deaf nonspeaking, not elsewhere classified; N17.9 Acute kidney failure, unspecified; Z79.899 Other long term (current) drug therapy
CPT/HCPCS: 36415; 36600; 51701; 70450; 71045; 80053; 81001; 82010; 82550; 82803; 83036; 83605; 83615; 83690; 83735; 83880; 84100; 84145; 84439; 84443; 84484; 85025; 85610; 85730; 87040; 87086; 87502; 87811; 93005; 96361; 96365; 96375; 99285; J0131; J0696; J1644; J1953; J7120; A9270